=== PATIENT | male | born 1940 | race Caucasian/White ===

== ENCOUNTER 2018-01-18 12:55 | Emergency (ER) | payer MEDICARE ==
[~2018-01-18] VITALS: Ht 177.8 cm; Wt 95.0 kg
[~2018-01-18 12:55] MED LIST: ASPI-516 CHEW; ASPI-99 PO; ATOR40TA16 PO; ENAL10TA PO; ENAL10TA7 PO; IMDU30TA PO; ISOS30TA3 PO; METO50TA PO
[2018-01-18 13:00] VITALS: BP 191/93; PULSE 84; RESP 16; TEMP 97.7; O2SAT 97
[2018-01-18] MEDS ORDERED: hydrALAZINE HCL 20 MG/ML VIAL IV PUSH ONE (13:15)
--- NOTE | 2018-01-18 13:21 | PD ---
HPI Chief Complaint: Elevated blood pressure Time Seen by Provider: 13:05 Travel History International Travel<30 days: No Contact w/Intl Traveler<30days: No Traveled to known affect area: No History of Present Illness HPI 77yo M with PMH of CAD s/p cardiac stent, HTN here with multiple complaints. Pt said he had a mild headache this morning when he woke up and checked his blood pressure and it was elevated. Pt said the headache has resolved but started feeling sob for a few hours. Also has some abdominal discomfort that is new for the last few hours. Denies any fever, visual changes, chest pain, n/ v, focal weakness or numbness. PFSH Social History Tobacco Use: No Allergies-Medications (Allergen,Severity, Reaction): Coded Allergies: No Known Allergies (Unverified Adverse Reaction, Unknown, 01/18/18) Reported Meds & Prescriptions Reported Meds & Active Scripts Active Cephalexin 500 Mg Cap 500 Mg PO Q12H 7 Days Metoprolol Tartrate 50 Mg Tab 50 Mg PO DAILY Enalapril (Enalapril Maleate) 10 Mg Tab 10 Mg PO DAILY Isosorbide Mononitrate ER (Isosorbide Mononitrate) 30 Mg Stepan 30 Mg PO DAILY Aspirin 81 Mg Chew 81 Mg CHEW DAILY Atorvastatin (Atorvastatin Calcium) 40 Mg Tab 40 Mg PO HS Review of Systems Except as stated in HPI: all other systems reviewed are Neg Physical Exam Narrative GENERAL: 77yo M not in distress. SKIN: Focused skin assessment warm/dry. HEAD: Atraumatic. Normocephalic. EYES: Pupils equal and round. No scleral icterus. No injection or drainage. ENT: No nasal bleeding or discharge. Mucous membranes pink and moist. NECK: Trachea midline. No JVD. CARDIOVASCULAR: Regular rate and rhythm. No murmur appreciated. RESPIRATORY: No accessory muscle use. Clear to auscultation. Breath sounds equal bilaterally. GASTROINTESTINAL: Abdomen soft, obese, mild discomfort in left abdomen. No rebound tenderness or guarding. MUSCULOSKELETAL: No obvious deformities. No clubbing. No cyanosis. No edema. NEUROLOGICAL: Awake and alert. No obvious cranial nerve deficits. Motor grossly within normal limits. Normal speech. PSYCHIATRIC: Appropriate mood and affect; insight and judgment normal. Data Data Last Documented VS Vital Signs Date Time Temp Pulse Resp B/P (MAP) Pulse Ox O2 Delivery O2 Flow Rate FiO2 01/18/18 16:00 01/18/18 14:39 73 18 98 Room Air 01/18/18 13:00 97.7 Orders Orders Hydralazine Inj (Apresoline Inj) (01/18/18 13:15) Complete Blood Count With Diff (01/18/18 13:13) Basic Metabolic Panel (Bmp) (01/18/18 13:13) Troponin I (01/18/18 13:13) Urinalysis - C+S If Indicated (01/18/18 13:13) Electrocardiogram (01/18/18 13:13) Chest, Single Ap (01/18/18 13:13) B-Type Natriuretic Peptide (01/18/18 13:13) Ed Poc Ultrasound (01/18/18 ) Cta Thor Abd Aorta W Iv C W3d (01/18/18 ) Urine Culture (01/18/18 14:15) Iohexol 350 Inj (Omnipaque 350 Inj) (01/18/18 14:27) Sulfamet-Trimeth Ds 800-160 Mg (Bactrim (01/18/18 14:45) Ed Discharge Order (01/18/18 15:56) Labs Laboratory Tests Test 01/18/18 13:15 01/18/18 14:15 White Blood Count 5.4 TH/MM3 Red Blood Count 5.35 MIL/MM3 Hemoglobin 15.0 GM/DL Hematocrit 44.3 % Mean Corpuscular Volume 82.7 FL Mean Corpuscular Hemoglobin 28.0 PG Mean Corpuscular Hemoglobin Concent 33.9 % Red Cell Distribution Width 14.3 % Platelet Count 180 TH/MM3 Mean Platelet Volume 7.9 FL Neutrophils (%) (Auto) 70.6 % Lymphocytes (%) (Auto) 18.1 % Monocytes (%) (Auto) 9.1 % Eosinophils (%) (Auto) 1.5 % Basophils (%) (Auto) 0.7 % Neutrophils # (Auto) 3.8 TH/MM3 Lymphocytes # (Auto) 1.0 TH/MM3 Monocytes # (Auto) 0.5 TH/MM3 Eosinophils # (Auto) 0.1 TH/MM3 Basophils # (Auto) 0.0 TH/MM3 CBC Comment DIFF FINAL Differential Comment Blood Urea Nitrogen 20 MG/DL Creatinine 1.00 MG/DL Random Glucose 116 MG/DL Calcium Level 8.5 MG/DL Sodium Level 139 MEQ/L Potassium Level 3.9 MEQ/L Chloride Level 104 MEQ/L Carbon Dioxide Level 26.8 MEQ/L Anion Gap 8 MEQ/L Estimat Glomerular Filtration Rate 72 ML/MIN Troponin I LESS THAN 0.02 NG/ML B-Type Natriuretic Peptide 34 PG/ML Urine Collection Type CLEAN CATCH Urine Color YELLOW Urine Turbidity CLEAR Urine pH 6.0 Urine Specific [place] LESS/EQUAL 1.005 Urine Protein NEG mg/dL Urine Glucose (UA) NEG mg/dL Urine Ketones NEG mg/dL Urine Occult Blood TRACE Urine Nitrite NEG Urine Bilirubin NEG Urine Urobilinogen 0.2 MG/DL Urine Leukocyte Esterase SMALL Urine RBC 0-3 /hpf Urine WBC 9-14 /hpf Urine WBC Clumps FEW Urine Squamous Epithelial Cells 0-5 /hpf Urine Transitional Epithelial Cells 0-5 /hpf Urine Amorphous Sediment FEW Urine Bacteria FEW /hpf Microscopic Urinalysis Comment CULTURE INDICATED Urine Collection Time 1415 MDM Medical Decision Making Medical Screen Exam Complete: Yes Emergency Medical Condition: Yes Interpretation(s) EKG: NSR 78bpm. LAD. Mild ST depression diffusely. LVH. Differential Diagnosis Hypertensive emergency vs. colitis vs. ACS Narrative Course 77yo M with here c/o sob and abdominal discomfort for a few hours. Pt had mild headache but it has resolved. Initially there was a large difference between the systolic blood pressure on right side versus left side so bedside ultrasound was completed to evaluate for any abdominal aneurysm. It was limited due to patient's body habitus but did not see any aortic dilatation. Repeat BP in right upper arm is decreased at 175/85. Pt is well appearing. Labs reviewed, no leukocytosis. H/H normal. Troponin negative. BNP normal. BUN mildly elevated at 20. Pt is mildly dehydrated with BUN/creatinine ratio of 2:1. Pt has no nausea or vomiting and can orally hydrate. Glucose 116. UA showed small leukocyte. WBC 9-14. Pt given bactrim. Pt reevaluated at bedside and said he feels better now. Has no abdominal tenderness on examination. Pt was initially given bactrim but because of the interaction between bactrim and MAGAN inhibitor, will prescribe cephalexin instead. Blood pressure has improved on its own. CT angio showed no aneurysmal enlargement or interstitial dissection involving the aorta. No acute process. Return precautions given. Procedures Procedure Narrative Emergency department Abdominal Aortic Aneurysm ultrasound was performed with patient consent. Curvilinear probe was used in the transverse and sagittal views within the epigastric, supraumbilical, and infraumbilical without evidence of Abdominal Aortic Aneurysm. Diagnosis Primary Impression: UTI (urinary tract infection) Qualified Codes: N39.0 - Urinary tract infection, site not specified Patient Instructions: General Instructions Departure Forms: Tests/Procedures Additional Instructions: Please follow up with your primary care physician in 2-3 days. Return to the ED if symptoms worsen. Med/Other Pt SpecificInfo: Prescription(s) given Scripts Cephalexin (Cephalexin) 500 Mg Cap 500 MG PO Q12H for Infection for 7 Days, #14 CAP 0 Refills Prov: Tessie Espinosa DO 01/18/18 Disposition: 01 DISCHARGE HOME Condition: Stable Tessie Espinosa DO Jan 18, 2018 13:21
[2018-01-18 13:22] VITALS: BP 158/88; PULSE 73; RESP 18; O2SAT 97
[2018-01-18 13:37] VITALS: BP 175/85; PULSE 70; RESP 18; O2SAT 97
[2018-01-18 13:38] LABS: AUTOMATED NEUTROPHIL # 3.8 TH/MM3 (1.8-7.7); BASOPHIL % 0.7 % (0.0-2.0); EOSINOPHIL # 0.1 TH/MM3 (0-0.4); EOSINOPHIL % 1.5 % (0.0-4.0); HEMATOCRIT 44.3 % (39.0-51.0); LYMPH % 18.1 % (9.0-44.0); MEAN CELL VOLUME 82.7 FL (80.0-100.0); MEAN CORPUSCULAR HGB CONC 33.9 % (32.0-36.0); MEAN PLATELET VOLUME 7.9 FL (7.0-11.0); MONO % 9.1 % (0.0-8.0); MONOCYTE # 0.5 TH/MM3 (0-0.9); NEUT % 70.6 % (16.0-70.0); PLATELET COUNT 180 TH/MM3 (150-450); RED BLOOD COUNT 5.35 MIL/MM3 (4.50-5.90); RED CELL DISTRIBUTION WIDTH 14.3 % (11.6-17.2); WHITE BLOOD COUNT 5.4 TH/MM3 (4.0-11.0)
--- NOTE | 2018-01-18 13:39 | RADRPT ---
EXAM DATE: 01/18/2018 1:35 PM EDT AGE/SEX: 77 years / Male INDICATIONS: Short of breath. CLINICAL DATA: This is the patient's initial encounter. Patient reports that signs and symptoms have been present for 1 day and indicates a pain score of 0/10. MEDICAL/SURGICAL HISTORY: None. None. COMPARISON: No prior exams available for comparison. FINDINGS: A single AP view of the chest demonstrates the lungs to be symmetrically aerated without evidence of mass, infiltrate or effusion. The cardiomediastinal contours are unremarkable. Osseous structures a re intact. CONCLUSION: Negative examination. Electronically signed by: Jean Marie Escalona MD 01/18/2018 1:37 PM EDT
[2018-01-18 13:44] LABS: CHLORIDE 104 MEQ/L (98-107); SODIUM (NA) 139 MEQ/L (136-145)
[2018-01-18 13:46] LABS: BICARBONATE 26.8 MEQ/L (21.0-32.0); BLOOD UREA NITROGEN 20 MG/DL (7-18); CALCIUM 8.5 MG/DL (8.5-10.1); GLUCOSE,RANDOM 116 MG/DL (74-106)
[2018-01-18 13:50] LABS: GLOMERULAR FILTRATION RATE 72 ML/MIN (>89)
[2018-01-18 13:54] LABS: TROPONIN I LESS THAN 0.02 NG/ML (0.02-0.05)
[2018-01-18 14:18] VITALS: BP 182/66; PULSE 72; RESP 18; O2SAT 98
[2018-01-18 14:21] LABS: BILIRUBIN, URINE NEG (NEG); BLOOD, URINE TRACE (NEG); GLUCOSE,URINE NEG (NEG); KETONE, URINE NEG (NEG); NITRITE,URINE NEG (NEG); URINE COLOR YELLOW (YELLW/STRAW); URINE LEUKOCYTE ESTERASE SMALL (NEG)
[2018-01-18 14:26] LABS: RBC, URINE 0-3 /hpf (0-3)
[2018-01-18 14:27] LABS: AMORPHOUS SEDIMENT, URINE FEW; BACTERIA, URINE FEW /hpf; SQUAMOUS EPITHELIAL CELL URINE 0-5 /hpf (0-5); TRANSITIONAL EPI CELLS, URINE 0-5 /hpf; WHITE BLOOD CELL CLUMPS FEW
[2018-01-18] MEDS ORDERED: IOHEXOL 350 MG/ML 10 ML VIAL (for RAD DIAG) IVCONTRAST ONE (14:27)
[2018-01-18 14:39] VITALS: BP 154/88; PULSE 73; RESP 18; O2SAT 98
[2018-01-18] MEDS ORDERED: SULFAMETHOXAZOLE-TRIMETHOPRIM DS 800-160 MG TAB PO ONE (14:45)
[2018-01-18] MEDS ORDERED: CEPH500C PO (15:15)
--- NOTE | 2018-01-18 15:53 | RADRPT ---
EXAM DATE: 01/18/2018 2:29 PM EDT AGE/SEX: 77 years / Male INDICATIONS: Short of breath, abdominal pressure and headache today. Evaluate for aortic dissection. CLINICAL DATA: This is the patient's initial encounter. Patient reports that signs and symptoms have been present for 1 day and indicates a pain score of 4/10. MEDICAL/SURGICAL HISTORY: Cardiovascular disease. Hypertension. Hypercholesterolemia. Coronary ar ruth ann stent. RADIATION DOSE: 21.62 CTDI (mGy) COMPARISON: No prior exams available for comparison. TECHNIQUE: Volumetric scanning was performed using a multi-row detector CT scanner during bolus infu jim of 85 ml Omnipaque 350 (iohexol) nonionic water-soluble contrast as a single exam dose. The da ta was post processed with a variety of visualization algorithms including full volume maximum intens ity projection, multi-planar sliding thin slab reformation, curved planar reformation, and surface re ndering techniques. Using automated exposure control and adjustment of the mA and/or kV according to patient size, radiation dose was kept as low as reasonably achievable to obtain optimal diagnostic q uality images. FINDINGS: [id number] calcified plaque is present throughout the thoracic and abdominal aorta. There is no evidence of aneurysmal enlargement, intimal dissection or wall ulcerations. Moderate coronary artery calcification is identified. Calcified plaque extends into the origin of the celiac, superior mesenteric and renal arteries. There is no evidence of significant ostial stenosis. There are 2 renal arteries to the right kidney and a single renal artery to the left kidney. Lungs are well-expanded and clear. The stone structures are unremarkable without evidence of lymphadenopathy or mass. The liver, spleen and pancreas are unremarkable. There is no evidence of cholelithiasis. Multiple renal cysts are noted. There are no suspicious renal masses, evidence of nephrolithiasis or hydronephrosis. 2.6 cm hypodense nodule is identified in the right adrenal gland. The prostate is moderately enlarged. Scattered diverticula are seen in the colon. There are no active intestinal inflammatory changes. CONCLUSION: 1. Calcific atherosclerotic vascular disease without evidence of aneurysmal enlargement or interstit ial dissection involving the aorta. 2. No evidence of acute cardiopulmonary process. 3. 2.6 cm right adrenal gland nodule characteristic of a adenoma. 4. Prostatomegaly with BPH. 5. No evidence of acute process, suspicious masses or lymphadenopathy. 6. Bilateral renal cysts. Electronically signed by: Jeff Skelton MD 01/18/2018 3:52 PM EDT
--- NOTE | 2018-01-19 09:35 | EKG ---
Date Performed: 01/18/2018 Time Performed: 13:21:58 PTAGE: 77 years EKG: Sinus rhythm MARKED LEFT AXIS DEVIATION VOLTAGE CRITERIA FOR LVH NONSPECIFIC ST & T-WAVE ABNORMALITY ABNORMAL ECG NO PREVIOUS TRACING DOCTOR: Bairon Redmond Interpretating Date/Time 01/19/2018 09:33:08
== END 2018-01-18 16:04 | disposition home or self-care (01) ==
LOC: PHED 12:55
DX: N39.0 Urinary tract infection, site not specified (principal); R94.31 Abnormal electrocardiogram [ECG] [EKG]; I10 Essential (primary) hypertension; R06.02 Shortness of breath; R51 Headache; I25.10 Atherosclerotic heart disease of native coronary artery without angina pectoris; Z95.5 Presence of coronary angioplasty implant and graft
CPT/HCPCS: 71045; 71275; 74174; 80048; 81001; 83880; 84484; 85025; 87086; 93005; 99285; Q9967